=== PATIENT | male | born 1960 | race Caucasian/White ===

== ENCOUNTER 2017-08-29 06:07 | Emergency (ER) | payer OTHER | END 2017-08-29 06:54 | disposition home or self-care (01) | LOC: FTE 06:07 | DX: L03.114 Cellulitis of left upper limb (principal) | CPT/HCPCS: 99284; Z7502 ==

== ENCOUNTER 2017-09-05 04:57 | Emergency (ER) | payer OTHER | END 2017-09-05 05:20 | disposition home or self-care (01) | LOC: FTE 04:57 | DX: Z48.02 Encounter for removal of sutures (principal); F17.210 Nicotine dependence, cigarettes, uncomplicated | CPT/HCPCS: 99281; Z7502 ==

== ENCOUNTER 2018-06-08 11:24 | Emergency (ER) | payer OTHER ==
[2018-06-08] MEDS: IBUPROFEN 600 MG TAB PO (12:34)
[2018-06-08 12:35] LABS: ADD MAN DIFF? NO; BASOPHIL # 0.1 10^3/ul (0.0-0.1); BASOPHILS % 0.5 % (0.0-2.0); EOSINOPHILS # 0.3 10^3/ul (0.0-0.5); EOSINOPHILS % 1.4 % (0.0-7.0); HEMATOCRIT 41.3 % (42.0-52.0); HEMOGLOBIN 13.9 g/dl (14.0-18.0); LYMPHOCYTES # 2.2 10^3/ul (0.8-2.9); MEAN CORPUSCULAR HEMOGLOBIN 30.1 pg (29.0-33.0); MEAN CORPUSCULAR HGB CONC 33.7 g/dl (32.0-37.0); MEAN CORPUSCULAR VOLUME 89.4 fl (82.0-101.0); MEAN PLATELET VOLUME 8.6 fl (7.4-10.4); MONOCYTE # 1.3 10^3/ul (0.3-0.9); MONOCYTES % 6.9 % (0.0-11.0); NEUTROPHIL # 14.2 10^3/ul (1.6-7.5); NEUTROPHILS % 78.8 % (39.0-77.0); PLATELET COUNT 373 10^3/UL (140-415); RED BLOOD COUNT 4.62 10^6/ul (4.70-6.10); RED CELL DISTRIBUTION WIDTH 13.2 % (11.5-14.5)
[2018-06-08 13:06] LABS: ALANINE AMINOTRANSFERASE 16 IU/L (13-69); ALBUMIN 3.8 g/dl (3.3-4.9); ALBUMIN/GLOBULIN RATIO 1.11; ALKALINE PHOSPHATASE 76 IU/L (42-121); ANION GAP 9 (5-13); ASPARTATE AMINO TRANSFERASE 22 IU/L (15-46); BILIRUBIN,INDIRECT 0.2 mg/dl (0-1.1); BILIRUBIN,TOTAL 0.2 mg/dl (0.2-1.3); BLOOD UREA NITROGEN 15 mg/dl (7-20); C-REACTIVE PROTEIN 1.4 mg/dl (0.0-0.9); CARBON DIOXIDE 25 mmol/L (21-31); CHLORIDE 107 mmol/L (97-110); CREATININE 0.76 mg/dl (0.61-1.24); Estimated GFR > 60 mL/min (>60); GLUCOSE 110 mg/dl (70-220); POTASSIUM 4.2 mmol/L (3.5-5.1); SODIUM 141 mmol/L (135-144); TOTAL PROTEIN 7.2 g/dl (6.1-8.1)
[2018-06-08 13:42] LABS: ERYTHROCYTE SEDIMENTATION RATE 7 mm/Hr (0-20)
[2018-06-08] MEDS: VANCOMYCIN 1 GM (PMX) 250 ML IVPB (14:05)
[2018-06-08] MEDS: DIPHTH/TET/ACEL PERTUSS (ADULT) 0.5 ML VIAL IM* (14:07)
== END 2018-06-08 16:32 | disposition home or self-care (01) ==
LOC: FTE 11:24
DX: L02.512 Cutaneous abscess of left hand (principal); Z23 Encounter for immunization; Z87.891 Personal history of nicotine dependence
CPT/HCPCS: 73130; 73130-LT; 73200; 76536; 80053; 85025; 85651; 86140; 90471; 90715; 99285-25

== ENCOUNTER 2018-06-09 07:08 | Emergency (ER) | payer OTHER ==
[2018-06-09] MEDS: TRIMETHOPRIM/SULFAMETHOX (DS) TAB PO (07:39)
[2018-06-09] MEDS: CEPHALEXIN 500 MG CAP PO (07:39)
== END 2018-06-09 07:57 | disposition home or self-care (01) ==
LOC: FTE 07:08
DX: L02.512 Cutaneous abscess of left hand (principal); F17.210 Nicotine dependence, cigarettes, uncomplicated; L03.114 Cellulitis of left upper limb; Z48.01 Encounter for change or removal of surgical wound dressing
CPT/HCPCS: 99283; Z7502

== ENCOUNTER 2018-06-10 08:29 | Inpatient (IN) | payer OTHER ==
[2018-06-10 10:07] LABS: ADD MAN DIFF? NO; BASOPHIL # 0.1 10^3/ul (0.0-0.1); BASOPHILS % 0.7 % (0.0-2.0); EOSINOPHILS # 0.1 10^3/ul (0.0-0.5); HEMATOCRIT 43.9 % (42.0-52.0); HEMOGLOBIN 14.8 g/dl (14.0-18.0); LYMPHOCYTES # 1.7 10^3/ul (0.8-2.9); MEAN CORPUSCULAR HEMOGLOBIN 30.5 pg (29.0-33.0); MEAN CORPUSCULAR HGB CONC 33.7 g/dl (32.0-37.0); MEAN CORPUSCULAR VOLUME 90.3 fl (82.0-101.0); MEAN PLATELET VOLUME 8.7 fl (7.4-10.4); MONOCYTES % 8.7 % (0.0-11.0); NEUTROPHILS % 73.2 % (39.0-77.0); PLATELET COUNT 369 10^3/UL (140-415); RED BLOOD COUNT 4.86 10^6/ul (4.70-6.10); RED CELL DISTRIBUTION WIDTH 13.3 % (11.5-14.5)
[2018-06-10 10:07] LABS: WHITE BLOOD COUNT 10.9 10^3/ul (4.8-10.8)
[2018-06-10] MEDS: ONDANSETRON 4 MG INJ IV (10:10)
[2018-06-10] MEDS: CEFTRIAXONE 1 GM/50 ML (PMX) 50 ML IVPB (10:11)
[2018-06-10] MEDS: HYDROmorphONE 1 MG/ML SYG IV (10:11)
[2018-06-10 10:23] LABS: ALANINE AMINOTRANSFERASE 15 IU/L (13-69); ALBUMIN 4.4 g/dl (3.3-4.9); ALBUMIN/GLOBULIN RATIO 1.15; ALKALINE PHOSPHATASE 74 IU/L (42-121); ANION GAP 15 (5-13); ASPARTATE AMINO TRANSFERASE 21 IU/L (15-46); BILIRUBIN,INDIRECT 0.2 mg/dl (0-1.1); BILIRUBIN,TOTAL 0.2 mg/dl (0.2-1.3); BLOOD UREA NITROGEN 10 mg/dl (7-20); CALCIUM 9.4 mg/dl (8.4-10.2); CARBON DIOXIDE 25 mmol/L (21-31); CHLORIDE 106 mmol/L (97-110); CREATININE 0.85 mg/dl (0.61-1.24); Estimated GFR > 60 mL/min (>60); GLUCOSE 91 mg/dl (70-220); POTASSIUM 4.6 mmol/L (3.5-5.1); SODIUM 146 mmol/L (135-144); TOTAL PROTEIN 8.2 g/dl (6.1-8.1)
[2018-06-10] MEDS: VANCOMYCIN 1 GM (PMX) 250 ML IVPB (10:56)
[2018-06-10] MEDS ORDERED: ACETAMINOPHEN 325 MG TAB PO (13:00)
[2018-06-10] MEDS ORDERED: ONDANSETRON 4 MG INJ IV (13:00)
[2018-06-10] MEDS ORDERED: HYDROCODONE/APAP (5/325) TAB PO (14:30)
[2018-06-10] MEDS ORDERED: VANCOMYCIN IV PER PHARMACY XX (14:30)
[2018-06-10] MEDS: VANCOMYCIN 1 GM 250 ML IVPB (17:43)
[2018-06-11] MEDS: VANCOMYCIN 1 GM 250 ML IVPB ×2 (06:11→19:04)
[2018-06-11] MEDS: CEFTRIAXONE 1 GM/50 ML (PMX) 50 ML IVPB (10:24)
[2018-06-11 18:53] LABS: VANCOMYCIN,TROUGH 6.7 ug/ml (10.0-20.0)
[2018-06-12] MEDS: VANCOMYCIN 1 GM 250 ML IVPB ×3 (03:22→19:05)
[2018-06-12] MEDS: CEFTRIAXONE 1 GM/50 ML (PMX) 50 ML IVPB (11:28)
[2018-06-12 18:28] LABS: VANCOMYCIN,TROUGH 12.3 ug/ml (10.0-20.0)
[2018-06-12] MEDS: IBUPROFEN 600 MG TAB PO (19:41)
[2018-06-13] MEDS: VANCOMYCIN 1 GM 250 ML IVPB (03:05)
== END 2018-06-13 09:40 | disposition left against medical advice (07) | DRG 603 ==
LOC: E/R 08:29 → 2NE 12:56
DX: L02.512 Cutaneous abscess of left hand (principal); L03.114 Cellulitis of left upper limb; Z72.0 Tobacco use
CPT/HCPCS: 36415; 73130-LT; 76882-RT; 80053; 80202; 85025; 87040; 96374; 96375; 99285-25

== ENCOUNTER 2018-10-01 10:04 | Emergency (ER) | payer OTHER ==
[2018-10-01] MEDS: TETRACAINE 0.5% 4 ML OPH BOTH EYES (11:00)
[2018-10-01 11:23] LABS: ADD MAN DIFF? NO
[2018-10-01 11:25] LABS: WHITE BLOOD COUNT 9.2 10^3/ul (4.8-10.8)
[2018-10-01 11:25] LABS: BASOPHIL # 0.1 10^3/ul (0.0-0.1); BASOPHILS % 0.5 % (0.0-2.0); EOSINOPHILS # 0.2 10^3/ul (0.0-0.5); EOSINOPHILS % 2.5 % (0.0-7.0); HEMATOCRIT 42.5 % (42.0-52.0); HEMOGLOBIN 14.1 g/dl (14.0-18.0); LYMPHOCYTES # 2.3 10^3/ul (0.8-2.9); LYMPHOCYTES % 25.1 % (15.0-51.0); MEAN CORPUSCULAR HEMOGLOBIN 29.7 pg (29.0-33.0); MEAN CORPUSCULAR HGB CONC 33.2 g/dl (32.0-37.0); MEAN CORPUSCULAR VOLUME 89.5 fl (82.0-101.0); MEAN PLATELET VOLUME 8.8 fl (7.4-10.4); MONOCYTE # 0.8 10^3/ul (0.3-0.9); MONOCYTES % 8.6 % (0.0-11.0); NEUTROPHIL # 5.8 10^3/ul (1.6-7.5); NEUTROPHILS % 63.1 % (39.0-77.0); PLATELET COUNT 316 10^3/UL (140-415); RED BLOOD COUNT 4.75 10^6/ul (4.70-6.10)
[2018-10-01 11:44] LABS: INR 0.93; PROTIME 12.6 Sec (11.9-14.9)
[2018-10-01 11:45] LABS: PARTIAL THROMBOPLASTIN TIME 34.7 Sec (23.0-35.0)
[2018-10-01 11:46] LABS: ALANINE AMINOTRANSFERASE 27 IU/L (13-69); ALBUMIN 3.9 g/dl (3.3-4.9); ALBUMIN/GLOBULIN RATIO 1.25; ALKALINE PHOSPHATASE 84 IU/L (42-121); ANION GAP 8 (5-13); ASPARTATE AMINO TRANSFERASE 24 IU/L (15-46); BLOOD UREA NITROGEN 13 mg/dl (7-20); CALCIUM 9.6 mg/dl (8.4-10.2); CARBON DIOXIDE 26 mmol/L (21-31); CHLORIDE 105 mmol/L (97-110); CREATININE 0.74 mg/dl (0.61-1.24); Estimated GFR > 60 mL/min (>60); GLUCOSE 153 mg/dl (70-220); SODIUM 139 mmol/L (135-144)
[2018-10-01 11:57] LABS: TROPONIN-I < 0.012 ng/ml (0.000-0.120)
== END 2018-10-01 14:16 | disposition home or self-care (01) ==
LOC: E/R 14:16
DX: H93.11 Tinnitus, right ear (principal); R42 Dizziness and giddiness; H10.11 Acute atopic conjunctivitis, right eye
CPT/HCPCS: 70450; 80053; 84484; 85025; 85610; 85730; 93005; 99285-25

== ENCOUNTER 2018-11-26 11:06 | Emergency (ER) | payer OTHER ==
[2018-11-26] MEDS: ONDANSETRON (ODT) 4 MG TAB ODT (13:05)
[2018-11-26] MEDS: MECLIZINE 12.5 MG TAB PO (13:06)
== END 2018-11-26 13:40 | disposition home or self-care (01) ==
LOC: FTE 11:06
DX: R42 Dizziness and giddiness (principal); F17.210 Nicotine dependence, cigarettes, uncomplicated; R11.0 Nausea
CPT/HCPCS: 99283; Z7502